=== PATIENT | female | born 1935 | race African-American/Black ===

== ENCOUNTER 2017-04-19 12:32 | Emergency (ER) | payer OTHER ==
[~2017-04-19] VITALS: Ht 162.6 cm; Wt 81.7 kg
[2017-04-19 14:30] LABS: ABSOLUTE NEUTROPHILS 4.7 thou/uL (1.4-8.2); BASOPHILS 0.5 % (0.0-2.0); EOSINOPHILS 1.5 % (0.0-3.0); HEMATOCRIT 40.1 % (37.0-47.0); HEMOGLOBIN 13.4 gm/dL (12.0-15.0); LYMPHOCYTES 28.3 % (24.0-44.0); MCHC 33.3 g/dL (28.0-37.0); MCV 92.9 fL (80.0-100.0); MONOCYTES 8.6 % (1.0-8.0); PLATELET COUNT 214 thou/uL (150-400); POLYS 61.1 % (36.0-66.0); RBC 4.31 mil/uL (4.20-5.00); RDW 14.6 % (10.5-14.5); WBC 7.7 thou/uL (4.0-11.0)
[2017-04-19 14:37] LABS: CALCIUM 8.9 mg/dL (8.5-10.1); CREATININE 0.8 mg/dL (0.6-1.0); POTASSIUM 3.8 mmol/L (3.5-5.1)
[2017-04-19 14:48] LABS: MANUAL DIFF NO
[2017-04-19 16:50] VITALS: BP 148/70
== END 2017-04-19 16:52 | disposition home or self-care (01) ==
LOC: ER 12:32
PROVIDERS: Emergency Medicine
DX: R60.0 Localized edema (principal); M79.661 Pain in right lower leg